=== PATIENT | female | born 1975 | race Caucasian/White ===

== ENCOUNTER → 2019-12-11 18:54 | Outpatient (CLI) | payer BC | END | disposition home or self-care (01) | LOC: D.LABREF 18:54 | PROVIDERS: ATTEND Surgery | DX: Z11.59 Encounter for screening for other viral diseases (principal) ==

== ENCOUNTER → 2020-08-08 08:28 | Outpatient (CLI) | payer BC ==
[2020-08-08 09:45] LABS: BASOPHILS 1.2 % (0-2); HEMATOCRIT 42.3 % (36.0-48.0); HEMOGLOBIN 14.3 g/dL (12-16); LYMPHOCYTES 31.1 % (15-50); MCH 31.3 pg (26.0-34.0); MCHC 33.8 g/dL (31.0-37.0); MCV 92.7 fL (80.0-100.0); MEAN PLATELET VOLUME 8.1 fL (7.4-10.4); MONOCYTES 8.5 % (2-11); NEUTROPHILS 56.2 % (40-80); PLATELET COUNT 269 10x3/uL (130-400); RBC 4.57 10x6/uL (4.00-5.40); RDW 13.6 % (11.5-14.5); WBC 6.9 10x3/uL (4.8-10.8)
[2020-08-08 10:17] LABS: ALBUMIN 3.9 g/dL (3.4-5.0); ALKALINE PHOSPHATASE 73 U/L (30-120); ALT (SGPT) 539 U/L (10-68); CALC OSMOLALITY 278 mosm/kg (275-300); CALCIUM 9.1 mg/dL (8.5-10.1); CARBON DIOXIDE 26.7 mmol/L (21.0-32.0); CHLORIDE - SERUM 103 mmol/L (98-107); CHOL - HDL RATIO 4.8 ratio (2.3-4.1); CHOLESTEROL, TOTAL 250 mg/dL (0-200); CREATININE - SERUM 0.6 mg/dL (0.6-1.3); GLUCOSE 106 mg/dL (74-106); HDL CHOLESTEROL 52 mg/dL (32-96); LDL CHOLESTEROL 184 mg/dL (0-100); LDL-HDL RATIO 3.5 ratio (1.5-3.5); POTASSIUM - SERUM 3.8 mmol/L (3.5-5.1); PROTEIN - SERUM 8.3 g/dL (6.4-8.2); SODIUM 140 mmol/L (136-145); TRIGLYCERIDE 70 mg/dL (30-200); UREA NITROGEN 12 mg/dL (7-18); eGFR NON AFRICAN AMERICAN > 90 mL/min (90-120)
[2020-08-09 07:14] LABS: FOLLICLE STIMULATING HORMONE 5.1 mIU/mL (()); LUTEINIZING HORMONE 8.9 mIU/mL (())
== END | disposition home or self-care (01) ==
LOC: D.LAB 08:28
PROVIDERS: ATTEND Nurse Practitioner
DX: R53.83 Other fatigue (principal)